=== PATIENT | female | born 1940 | race Caucasian/White ===

== ENCOUNTER 2021-07-11 10:52 | Inpatient (IN) ==
[2021-07-11] MEDS ORDERED: Ondansetron 4 MG/2 ML VIAL IVP PRN (13:43)
[2021-07-11] MEDS ORDERED: Naloxone 0.4 MG/ML INJ IVP PRN (13:43)
[2021-07-11] MEDS ORDERED: Haloperidol Lactate 5 MG/ML VIAL IVP ONE (13:44)
[2021-07-11] MEDS ORDERED: *HR* Heparin 5,000 UNIT/ML VIAL IVP PRN ×2 (13:45)
[2021-07-11] MEDS ORDERED: Perflutren Lipid Microsphere 1.3 ML in 0.9 % Sodium Chloride 8.7 ML IVP PRN (14:48)
[2021-07-11] MEDS: Heparin 25,000 UNIT/250 ML 25,000 UNIT/250 ML IV.SOLN IVC SCH (14:54)
[2021-07-11] MEDS ORDERED: Nitroglycerin 0.4 MG TAB.SUBL SL PRN (17:35)
[2021-07-11] MEDS: QUEtiapine Fumarate 25 MG TABLET PO SCH (22:26)
[2021-07-12] MEDS ORDERED: Haloperidol Lactate 5 MG/ML VIAL IVP ONE (03:56)
[2021-07-12 05:45] LABS: Basophils # 0.1 K/mcL (0.0-0.2); Basophils % 0.6 %; Eosinophils # 0.1 K/mcL (0.0-0.6); Eosinophils % 0.6 %; Hemoglobin 12.9 g/dL (11.5-15.4); Immature Granulocytes % 0.9 % (0-4); Lymphocytes # 1.4 K/mcL (0.6-4.6); Lymphocytes % 16.6 %; Mean Corpuscular HGB Conc 33.1 g/dL (31.6-35.5); Mean Corpuscular Volume 87.6 fL (83.0-100.0); Mean Platelet Volume 11.1 fL (9.4-12.4); Monocytes # 0.7 K/mcL (0.0-1.3); Monocytes % 7.6 %; Neutrophils # 6.4 K/mcL (1.6-8.9); Platelet Count 208 K/mcL (140-400); Red Blood Count 4.45 M/mcL (3.82-4.97); Red Cell Distribution Width 16.9 % (11.5-14.5); Segmented Neutrophils % 73.7 %; White Blood Count 8.6 K/mcL (4.3-11.1)
[2021-07-12 05:48] LABS: BUN/Creatinine Ratio 35 (6-26); Blood Urea Nitrogen 29 mg/dL (8-23); Calcium 8.9 mg/dL (8.6-10.3); Carbon Dioxide 25 mEq/L (23-29); Chloride 104 mEq/L (98-107); Glucose 86 mg/dL (70-105); Osmolality,Calculated 293 (280-300); Potassium 4.3 mEq/L (3.5-5.1); Sodium 139 mEq/L (136-145); eGFR For African Americans > 60 (> 60); eGFR For Non-African Americans > 60 (> 60)
[2021-07-12] MEDS: Metoprolol XL (24 HR) Succ 25 MG TAB.ER.24H PO SCH (08:27)
[2021-07-12] MEDS: QUEtiapine Fumarate 25 MG TABLET PO SCH ×2 (08:27→21:18)
[2021-07-12] MEDS: Aspirin 81 MG TAB.CHEW PO SCH (08:27)
[2021-07-12] MEDS: Furosemide 20 MG/2 ML VIAL IVP SCH (08:27)
[2021-07-12] MEDS: Heparin 25,000 UNIT/250 ML 25,000 UNIT/250 ML IV.SOLN IVC SCH ×2 (13:40→17:25)
[2021-07-12] MEDS: Acetaminophen 325 MG TABLET PO PRN (16:40)
[2021-07-13] MEDS: Acetaminophen 325 MG TABLET PO PRN ×2 (01:36→15:22)
[2021-07-13 03:26] LABS: Basophils % 0.4 %; Eosinophils # 0.1 K/mcL (0.0-0.6); Eosinophils % 1.2 %; Hematocrit 39.3 % (35.3-44.9); Hemoglobin 12.4 g/dL (11.5-15.4); Immature Granulocytes % 0.5 % (0-4); Lymphocytes # 1.1 K/mcL (0.6-4.6); Lymphocytes % 10.7 %; Mean Corpuscular HGB Conc 31.6 g/dL (31.6-35.5); Mean Corpuscular Hemoglobin 28.6 pg (28.0-33.3); Mean Corpuscular Volume 90.6 fL (83.0-100.0); Mean Platelet Volume 10.9 fL (9.4-12.4); Monocytes # 0.9 K/mcL (0.0-1.3); Monocytes % 8.4 %; Neutrophils # 8.2 K/mcL (1.6-8.9); Platelet Count 195 K/mcL (140-400); Red Blood Count 4.34 M/mcL (3.82-4.97); Red Cell Distribution Width 16.7 % (11.5-14.5); Segmented Neutrophils % 78.8 %; White Blood Count 10.4 K/mcL (4.3-11.1)
[2021-07-13 03:49] LABS: BUN/Creatinine Ratio 41 (6-26); Blood Urea Nitrogen 38 mg/dL (8-23); Calcium 8.6 mg/dL (8.6-10.3); Carbon Dioxide 29 mEq/L (23-29); Chloride 101 mEq/L (98-107); Glucose 113 mg/dL (70-105); Osmolality,Calculated 296 (280-300); Potassium 3.5 mEq/L (3.5-5.1); Sodium 138 mEq/L (136-145); eGFR For African Americans > 60 (> 60); eGFR For Non-African Americans 58 (> 60)
[2021-07-13] MEDS: Metoprolol XL (24 HR) Succ 25 MG TAB.ER.24H PO SCH (09:21)
[2021-07-13] MEDS: Aspirin 81 MG TAB.CHEW PO SCH (09:22)
[2021-07-13] MEDS: Furosemide 20 MG/2 ML VIAL IVP SCH (09:22)
[2021-07-13] MEDS: QUEtiapine Fumarate 25 MG TABLET PO SCH ×2 (09:22→20:24)
[2021-07-13] MEDS: Sucralfate 1 GM TABLET PO SCH ×2 (15:23→20:23)
[2021-07-13] MEDS: *HR* Heparin 5,000 UNIT/ML VIAL SQ SCH (19:21)
[2021-07-13] MEDS ORDERED: MOM Conc 10 ML UD.LIQ PO ONE (20:06)
[2021-07-13] MEDS: Divalproex (12 HR) 250 MG TABLET PO SCH (20:23)
[2021-07-13] MEDS: Ranolazine 500 MG TAB.ER.12H PO SCH (20:23)
[2021-07-14] MEDS: *HR* Heparin 5,000 UNIT/ML VIAL SQ SCH ×2 (05:49→18:41)
[2021-07-14 06:37] LABS: Basophils % 0.2 %; Eosinophils # 0.1 K/mcL (0.0-0.6); Eosinophils % 0.9 %; Hematocrit 42.1 % (35.3-44.9); Hemoglobin 12.9 g/dL (11.5-15.4); Immature Granulocytes % 0.7 % (0-4); Lymphocytes # 1.3 K/mcL (0.6-4.6); Lymphocytes % 13.2 %; Mean Corpuscular HGB Conc 30.6 g/dL (31.6-35.5); Mean Corpuscular Hemoglobin 27.9 pg (28.0-33.3); Mean Corpuscular Volume 91.1 fL (83.0-100.0); Mean Platelet Volume 11.2 fL (9.4-12.4); Monocytes # 0.7 K/mcL (0.0-1.3); Neutrophils # 7.6 K/mcL (1.6-8.9); Platelet Count 192 K/mcL (140-400); Red Blood Count 4.62 M/mcL (3.82-4.97); White Blood Count 9.7 K/mcL (4.3-11.1)
[2021-07-14 06:47] LABS: BUN/Creatinine Ratio 30 (6-26); Blood Urea Nitrogen 24 mg/dL (8-23); Calcium 8.9 mg/dL (8.6-10.3); Carbon Dioxide 29 mEq/L (23-29); Chloride 101 mEq/L (98-107); Glucose 98 mg/dL (70-105); Osmolality,Calculated 288 (280-300); Potassium 4.2 mEq/L (3.5-5.1); Sodium 137 mEq/L (136-145); eGFR For African Americans > 60 (> 60); eGFR For Non-African Americans > 60 (> 60)
[2021-07-14] MEDS: QUEtiapine Fumarate 25 MG TABLET PO SCH ×2 (08:53→19:23)
[2021-07-14] MEDS: Metoprolol XL (24 HR) Succ 25 MG TAB.ER.24H PO SCH (08:53)
[2021-07-14] MEDS: Sucralfate 1 GM TABLET PO SCH ×3 (08:53→19:23)
[2021-07-14] MEDS: Aspirin 81 MG TAB.CHEW PO SCH (08:53)
[2021-07-14] MEDS: Ranolazine 500 MG TAB.ER.12H PO SCH ×2 (08:53→19:23)
[2021-07-14] MEDS: lisinopriL 10 MG TABLET PO SCH (08:53)
[2021-07-14] MEDS: Acetaminophen 325 MG TABLET PO PRN (08:54)
[2021-07-14] MEDS: Furosemide 20 MG TABLET PO SCH (08:54)
[2021-07-14] MEDS: Divalproex (12 HR) 250 MG TABLET PO SCH (19:23)
[2021-07-15] MEDS: *HR* Heparin 5,000 UNIT/ML VIAL SQ SCH ×2 (05:32→17:51)
[2021-07-15] MEDS: Sucralfate 1 GM TABLET PO SCH ×3 (08:51→20:55)
[2021-07-15] MEDS: Ranolazine 500 MG TAB.ER.12H PO SCH ×2 (08:52→20:55)
[2021-07-15] MEDS: lisinopriL 10 MG TABLET PO SCH (08:52)
[2021-07-15] MEDS: Furosemide 20 MG TABLET PO SCH (08:52)
[2021-07-15] MEDS: Metoprolol XL (24 HR) Succ 25 MG TAB.ER.24H PO SCH (08:52)
[2021-07-15] MEDS: Aspirin 81 MG TAB.CHEW PO SCH (08:52)
[2021-07-15] MEDS: QUEtiapine Fumarate 25 MG TABLET PO SCH ×2 (08:53→20:55)
[2021-07-15 10:53] LABS: Basophils % 0.5 %; Eosinophils # 0.2 K/mcL (0.0-0.6); Hemoglobin 12.6 g/dL (11.5-15.4); Lymphocytes # 0.8 K/mcL (0.6-4.6); Lymphocytes % 9.9 %; Mean Corpuscular HGB Conc 30.7 g/dL (31.6-35.5); Mean Corpuscular Hemoglobin 28.1 pg (28.0-33.3); Mean Corpuscular Volume 91.5 fL (83.0-100.0); Mean Platelet Volume 10.6 fL (9.4-12.4); Monocytes # 0.5 K/mcL (0.0-1.3); Monocytes % 5.9 %; Neutrophils # 6.7 K/mcL (1.6-8.9); Platelet Count 204 K/mcL (140-400); Red Blood Count 4.48 M/mcL (3.82-4.97); Red Cell Distribution Width 16.9 % (11.5-14.5); Segmented Neutrophils % 80.7 %; White Blood Count 8.3 K/mcL (4.3-11.1)
[2021-07-15 11:12] LABS: BUN/Creatinine Ratio 29 (6-26); Blood Urea Nitrogen 26 mg/dL (8-23); Calcium 8.6 mg/dL (8.6-10.3); Carbon Dioxide 28 mEq/L (23-29); Chloride 100 mEq/L (98-107); Glucose 109 mg/dL (70-105); Osmolality,Calculated 287 (280-300); Potassium 4.2 mEq/L (3.5-5.1); Sodium 136 mEq/L (136-145); eGFR For African Americans > 60 (> 60); eGFR For Non-African Americans 60 (> 60)
[2021-07-15] MEDS: Divalproex (12 HR) 250 MG TABLET PO SCH (20:55)
[2021-07-16 02:37] LABS: Basophils # 0.1 K/mcL (0.0-0.2); Basophils % 0.8 %; Eosinophils # 0.2 K/mcL (0.0-0.6); Eosinophils % 3.1 %; Hematocrit 41.4 % (35.3-44.9); Hemoglobin 13.1 g/dL (11.5-15.4); Immature Granulocytes % 1.1 % (0-4); Lymphocytes # 1.2 K/mcL (0.6-4.6); Lymphocytes % 15.9 %; Mean Corpuscular HGB Conc 31.6 g/dL (31.6-35.5); Mean Corpuscular Hemoglobin 28.8 pg (28.0-33.3); Mean Platelet Volume 10.6 fL (9.4-12.4); Monocytes # 0.6 K/mcL (0.0-1.3); Monocytes % 7.9 %; Neutrophils # 5.4 K/mcL (1.6-8.9); Platelet Count 196 K/mcL (140-400); Red Blood Count 4.55 M/mcL (3.82-4.97); Red Cell Distribution Width 16.4 % (11.5-14.5); Segmented Neutrophils % 71.2 %; White Blood Count 7.5 K/mcL (4.3-11.1)
[2021-07-16 02:52] LABS: BUN/Creatinine Ratio 28 (6-26); Blood Urea Nitrogen 24 mg/dL (8-23); Calcium 8.9 mg/dL (8.6-10.3); Carbon Dioxide 27 mEq/L (23-29); Chloride 100 mEq/L (98-107); Glucose 85 mg/dL (70-105); Osmolality,Calculated 293 (280-300); Potassium 4.1 mEq/L (3.5-5.1); Sodium 140 mEq/L (136-145); eGFR For African Americans > 60 (> 60); eGFR For Non-African Americans > 60 (> 60)
[2021-07-16] MEDS: *HR* Heparin 5,000 UNIT/ML VIAL SQ SCH ×2 (06:14→18:13)
[2021-07-16] MEDS: Ranolazine 500 MG TAB.ER.12H PO SCH ×2 (09:33→20:33)
[2021-07-16] MEDS: Metoprolol XL (24 HR) Succ 25 MG TAB.ER.24H PO SCH (09:33)
[2021-07-16] MEDS: Aspirin 81 MG TAB.CHEW PO SCH (09:35)
[2021-07-16] MEDS: Furosemide 20 MG TABLET PO SCH (09:35)
[2021-07-16] MEDS: lisinopriL 10 MG TABLET PO SCH (09:35)
[2021-07-16] MEDS: Sucralfate 1 GM TABLET PO SCH ×3 (09:35→20:34)
[2021-07-16] MEDS: QUEtiapine Fumarate 25 MG TABLET PO SCH ×2 (09:36→20:33)
[2021-07-16] MEDS: Divalproex (12 HR) 250 MG TABLET PO SCH (20:34)
[2021-07-17] MEDS: *HR* Heparin 5,000 UNIT/ML VIAL SQ SCH ×2 (06:29→18:05)
[2021-07-17] MEDS: lisinopriL 10 MG TABLET PO SCH (07:25)
[2021-07-17] MEDS: QUEtiapine Fumarate 25 MG TABLET PO SCH ×2 (07:25→20:05)
[2021-07-17] MEDS: Metoprolol XL (24 HR) Succ 25 MG TAB.ER.24H PO SCH (07:25)
[2021-07-17] MEDS: Furosemide 20 MG TABLET PO SCH (07:25)
[2021-07-17] MEDS: Aspirin 81 MG TAB.CHEW PO SCH (07:25)
[2021-07-17] MEDS: Sucralfate 1 GM TABLET PO SCH ×3 (07:25→20:05)
[2021-07-17] MEDS: Ranolazine 500 MG TAB.ER.12H PO SCH ×2 (07:26→20:05)
[2021-07-17] MEDS: Divalproex (12 HR) 250 MG TABLET PO SCH (20:05)
[2021-07-18] MEDS: *HR* Heparin 5,000 UNIT/ML VIAL SQ SCH ×2 (06:33→17:43)
[2021-07-18] MEDS: Furosemide 20 MG TABLET PO SCH (09:13)
[2021-07-18] MEDS: QUEtiapine Fumarate 25 MG TABLET PO SCH ×2 (09:13→20:19)
[2021-07-18] MEDS: lisinopriL 10 MG TABLET PO SCH (09:13)
[2021-07-18] MEDS: Aspirin 81 MG TAB.CHEW PO SCH (09:13)
[2021-07-18] MEDS: Metoprolol XL (24 HR) Succ 25 MG TAB.ER.24H PO SCH (09:13)
[2021-07-18] MEDS: Ranolazine 500 MG TAB.ER.12H PO SCH ×2 (09:14→20:19)
[2021-07-18] MEDS: Sucralfate 1 GM TABLET PO SCH ×3 (09:14→20:19)
[2021-07-18] MEDS: Divalproex (12 HR) 250 MG TABLET PO SCH (20:19)
[2021-07-19] MEDS: *HR* Heparin 5,000 UNIT/ML VIAL SQ SCH ×2 (05:57→16:31)
[2021-07-19] MEDS: lisinopriL 10 MG TABLET PO SCH (08:52)
[2021-07-19] MEDS: QUEtiapine Fumarate 25 MG TABLET PO SCH (08:53)
[2021-07-19] MEDS: Aspirin 81 MG TAB.CHEW PO SCH (08:53)
[2021-07-19] MEDS: Sucralfate 1 GM TABLET PO SCH ×2 (08:53→16:30)
[2021-07-19] MEDS: Ranolazine 500 MG TAB.ER.12H PO SCH (08:53)
[2021-07-19] MEDS: Furosemide 20 MG TABLET PO SCH (08:54)
[2021-07-19] MEDS: Metoprolol XL (24 HR) Succ 25 MG TAB.ER.24H PO SCH (08:54)
[2021-07-19 17:03] LABS: Adenovirus Not Detected (Not Detect); Bordetella Pertussis Not Detected (Not Detect); Chlamydophila pneumoniae Not Detected (Not Detect); Coronavirus 229E Not Detected (Not Detect); Coronavirus HKU1 Not Detected (Not Detect); Coronavirus NL63 Not Detected (Not Detect); Coronavirus OC43 Not Detected (Not Detect); Human Metapneumovirus Not Detected (Not Detect); Human Rhinovirus/Enterovirus Not Detected (Not Detect); Influenza A Subtype 2009 H1 Not Detected (Not Detect); Influenza B Not Detected (Not Detect); Mycoplasma pneumoniae Not Detected (Not Detect); Parainfluenza Virus 1 Not Detected (Not Detect); Parainfluenza Virus 2 Not Detected (Not Detect); Parainfluenza Virus 3 Not Detected (Not Detect); Parainfluenza Virus 4 Not Detected (Not Detect); Respiratory Syncytial Virus Not Detected (Not Detect); SARS-CoV-2 Not Detected (Not Detect)
[2021-07-19 19:16] VITALS: BP 132/60; PULSE 83; TEMP 97.8; O2SAT 98
== END 2021-07-19 19:41 | disposition other institution (70) | DRG 281 ==
LOC: 3NENU → SUATTDRO 13:43
PROVIDERS: ADMIT Internal Medicine; ATTEND Registered Nurse